=== PATIENT | male | born 1995 | race African-American/Black ===

== ENCOUNTER 2018-07-11 08:32 | Day surgery (SDC) | payer OTHER ==
[2018-07-11] MEDS ORDERED: MIDAZOLAM INJ 2 MG/2 ML VIAL (J2250) As Ordered (09:22)
[2018-07-11] MEDS ORDERED: ROCURONIUM BROMIDE 50 MG/5 ML VIAL As Ordered (09:22)
[2018-07-11] MEDS ORDERED: PROPOFOL 200 MG/20 ML VIAL As Ordered ×3 (09:22→11:27)
[2018-07-11] MEDS ORDERED: fentaNYL 100 MCG/2 ML INJECTION (J3010) As Ordered ×2 (09:22→11:20)
[2018-07-11] MEDS ORDERED: LIDOCAINE 2% INJ 100 MG/5 ML SDV (FOR ANES.) As Ordered (09:22)
[2018-07-11] MEDS ORDERED: SUCCINYLCHOLINE 100 MG/5 ML SYRINGE (J0330) As Ordered ×3 (09:22→11:21)
[2018-07-11] MEDS ORDERED: ONDANSETRON 4MG/2ML VIAL (J2405) As Ordered (09:23)
[2018-07-11] MEDS ORDERED: dexameTHASONE 4 MG/ML 1ML VIAL (J1100) As Ordered (09:23)
[2018-07-11] MEDS: BUPIVACAINE/EPIN 0.5% 30 ML VIAL As Ordered (11:01)
[2018-07-11] MEDS: LIDOCAINE W/EPINEPHRINE 1% 20ML VIAL As Ordered (11:01)
[2018-07-11] MEDS ORDERED: LR 1,000 ML IV ×2 (12:15)
[2018-07-11] MEDS ORDERED: ONDANSETRON 4MG/2ML VIAL (J2405) IV (12:15)
[2018-07-11] MEDS ORDERED: fentaNYL 100 MCG/2 ML INJECTION (J3010) IV (12:15)
[2018-07-11] MEDS: NORCO, ANEXSIA 5/325MG TABLET (HYDROcodone/ACETAMINOPHEN) PO (12:29)
== END 2018-07-11 13:12 | disposition home or self-care (01) ==
LOC: M SDC 08:32
DX: J35.01 Chronic tonsillitis (principal)
CPT/HCPCS: 42826

== ENCOUNTER 2018-07-13 06:43 | Emergency (ER) | payer OTHER ==
[2018-07-13] MEDS: NS 1,000 ML IV (07:33)
[2018-07-13] MEDS: MORPHINE 4 MG/ML 1ML VIAL/SYRINGE (J2270) IV (07:33)
[2018-07-13] MEDS: ONDANSETRON 4MG/2ML VIAL (J2405) IV (07:33)
[2018-07-13] MEDS: dexameTHASONE 20 MG/5 ML VIAL (J1100) IV (08:05)
== END 2018-07-13 08:50 | disposition home or self-care (01) ==
LOC: M ED 06:43
DX: G89.18 Other acute postprocedural pain (principal); F17.200 Nicotine dependence, unspecified, uncomplicated
CPT/HCPCS: J2270

== ENCOUNTER → 2018-12-13 | Outpatient (CLI) | payer OTHER ==
[~2018-12-13] MED LIST: BENZ200C70 PO; HYDR-3713; HYDR1SOL PO; IBUPOTC; SORE15LO; TGT25CAP
== END ==
LOC: M RAD 08:24
PROVIDERS: ATTEND Physician Assistant
DX: M25.532 Pain in left wrist (principal)

== ENCOUNTER 2019-08-29 23:07 | Emergency (ER) | payer OTHER ==
[~2019-08-29] VITALS: Ht 190.5 cm; Wt 109.1 kg
[~2019-08-29 23:07] MED LIST changes: -TGT25CAP; +[UNRECOGNIZED DRUG - CODE]
--- NOTE | 2019-08-30 02:08 | REPVR ---
PROCEDURE INFORMATION: Exam: CT Abdomen And Pelvis Without Contrast Exam date and time: 08/30/2019 1:48 AM Clinical history: 23 years old, male; Other: Hematuria TECHNIQUE: Imaging protocol: Computed tomography of the abdomen and pelvis without contrast. Radiation optimization: All CT scans at this facility use at least one of these dose optimization techniques: automated exposure control; mA and/or kV adjustment per patient size (includes targeted exams where dose is matched to clinical indication); or iterative reconstruction. COMPARISON: No relevant prior studies available. FINDINGS: Liver: Normal. No mass. Gallbladder and bile ducts: The gallbladder is contracted with no stones. Pancreas: Normal. No ductal dilation. Spleen: Normal. No splenomegaly. Adrenals: Normal. No mass. Kidneys and ureters: Normal. No hydronephrosis. Stomach and bowel: Borderline distention of the stomach with food material and gas. Appendix: A normal retrocecal appendix is seen. Intraperitoneal space: Unremarkable. No free air. No significant fluid collection. Vasculature: Unremarkable. No abdominal aortic aneurysm. Lymph nodes: Unremarkable. No enlarged lymph nodes. Bladder: Unremarkable as visualized. Reproductive: Unremarkable as visualized. Bones/joints: Unremarkable. No acute fracture. Soft tissues: Unremarkable. IMPRESSION: 1. There is borderline distention of the stomach which in view of a contracted gallbladder likely reflects recent ingestion. 2. Otherwise negative CT abdomen/pelvis. No renal or ureteral calculi are evident and there is no evidence of obstructive uropathy. Electronically signed by: Mervin Wolff On 08/30/2019 02:08:29 AM
[2019-08-30 03:15] VITALS: BP 143/84
== END 2019-08-30 03:16 | disposition home or self-care (01) ==
LOC: M ED 23:07
DX: R31.29 Other microscopic hematuria (principal)

== ENCOUNTER → 2019-09-05 | Outpatient (REF) | payer OTHER ==
[2019-09-05 14:00] LABS: APPEARANCE, URINE CLEAR (CLEAR); BACTERIA, URINE AUTO NEGATIVE (NEGATIVE); BILIRUBIN, URINE AUTO NEGATIVE (NEGATIVE); BLOOD, URINE BLOOD NEGATIVE (NEGATIVE); COLOR, URINE YELLOW (YELLOW); GLUCOSE, URINE (UA) AUTO NEGATIVE (NEGATIVE); KETONE, URINE AUTO NEGATIVE (NEGATIVE); LEUKOCYTE ESTERASE, URINE AUTO NEGATIVE (NEGATIVE); MUCUS, URINE SMALL (NEGATIVE); NITRITE, URINE AUTO NEGATIVE (NEGATIVE); PROTEIN, URINE AUTO NEGATIVE (NEGATIVE); RBC, URINE AUTO 0 /HPF (0-3); SPECIFIC GRAVITY URINE AUTO 1.019 (1.002-1.035); SQUAMOUS EPITHELIAL CELL UR AU 0 /HPF (0-6); UROBILINOGEN, URINE AUTO 0.2 mg/dL (0.0-2.0); WBC, URINE AUTO 2 /HPF (0-3)
== END ==
LOC: M SMT 13:12
PROVIDERS: ATTEND Nurse Practitioner Family
DX: R31.0 Gross hematuria (principal)
CPT/HCPCS: 81001; 87086; G0463

== ENCOUNTER → 2019-09-21 | Outpatient (REF) | payer OTHER | LOC: M SMT 13:17 | PROVIDERS: ATTEND Nurse Practitioner Family | DX: R31.0 Gross hematuria (principal) ==

== ENCOUNTER → 2019-11-01 | Outpatient (CLI) | payer OTHER ==
[~2019-11-01] MED LIST changes: +ISOVUE-370 76% 100ML VIAL (Q9967) As Ordered ONE
--- NOTE | 2019-11-02 04:48 | REP ---
Clinical: Gross hematuria. Technique: Precontrast, contrast enhanced, and delayed images of the abdomen and pelvis using 100 ml Isovue 370 intravenous contrast material with coronal and sagittal re-formations. 3-D volume rendered CT urogram obtained. Comparison: 08/30/2019. Findings: Evaluation of the urinary tract system in all phases of enhancement demonstrates normal kidneys, ureters and bladder. No hydroureteronephrosis, nephroureterolithiasis, perinephric stranding, renal cystic or mass lesion appreciated. Liver, spleen, pancreas, gallbladder, and bilateral adrenal glands are normal. The enteric system is without obstruction or acute inflammatory process. Normal terminal ileum, cecum and appendix identified in the right lower quadrant. Pelvis demonstrates normal bladder and age appropriate prostate/seminal vesicles. No ascites. No free air. No adenopathy. Abdominal aorta and vasculature normal. Musculoskeletal structures are intact. Lung bases are clear. Impression: 1. Normal urinary tract system. 2. No acute abdominopelvic pathology appreciated. Electronically Signed by Jayden Diallo MD 11/02/2019 04:39 A
== END ==
LOC: M RAD 10:36
PROVIDERS: ATTEND Urology
DX: R31.0 Gross hematuria (principal)
CPT/HCPCS: 74178; Q9967